=== PATIENT | male | born 1995 | race Caucasian/White ===

== ENCOUNTER 2023-10-09 14:57 | Emergency (ER) | payer OTHER ==
[~2023-10-09] VITALS: Ht 193 cm; Wt 122.5 kg
[2023-10-09 15:33] VITALS: BP 146/80; PULSE 95; RESP 18; TEMP 98.4; O2SAT 99
[2023-10-09] MEDS ORDERED: NACL 0.9% 1,000 ML IV ONE (17:20)
[2023-10-09 17:45] LABS: BASOPHILS % (AUTO) 0.2 % (0.0-2.0); HEMATOCRIT 38.1 % (36-52); HEMOGLOBIN 12.8 g/dL (12.0-18.0); LYMPHOCYTES # (AUTO) 1.2 K/uL (2.0-11.5); LYMPHOCYTES % (AUTO) 6.6 % (20.5-51.1); MEAN CORPUSCULAR HEMOGLOBIN 28 pg (27-31); MEAN CORPUSCULAR HGB CONC 34 g/dL (33-37); MEAN CORPUSCULAR VOLUME 81.9 fL (80-94); MONOCYTES # (AUTO) 1.6 K/uL (0.8-1.0); MONOCYTES % (AUTO) 8.8 % (1.7-9.3); NEUTROPHILS # (AUTO) 15.3 K/uL (1.8-7.7); NEUTROPHILS % (AUTO) 84.4 % (42.2-75.2); PLATELET COUNT (AUTO) 325 K/uL (140-450); RED BLOOD CELL COUNT(AUTO) 4.65 MIL/uL (4.20-6.10); RED CELL DISTRIBUTION WIDTH 14.3 % (11.6-13.7); WHITE BLOOD COUNT (AUTO) 18.1 K/uL (4.8-10.8)
[2023-10-09 18:13] LABS: ALBUMIN 3.8 g/dL (3.4-5.0); ANION GAP 10.2 (8-16); CALCIUM 8.5 mg/dL (8.5-10.1); CARBON DIOXIDE 27.8 mmol/L (21-32); TOTAL BILIRUBIN 2.1 mg/dL (0.0-1.0); TOTAL PROTEIN, SERUM 8.4 g/dL (6.4-8.2)
[2023-10-09 18:17] LABS: LACTIC ACID 1.2 mmol/L (0.4-2.0)
[2023-10-09] MEDS ORDERED: ceFAZolin 1,000 MG VIAL ONE (18:21)
[2023-10-09] MEDS ORDERED: POTASSIUM CHLORIDE 10 MEQ TABER PO ONE (19:15)
[2023-10-09] MEDS ORDERED: SULF-59 PO (20:16)
[2023-10-09] MEDS ORDERED: CEPH-588 PO (20:16)
[2023-10-09] MEDS ORDERED: ACET-10509 PO (20:16)
[2023-10-09 20:40] VITALS: BP 133/63; PULSE 94; RESP 20; TEMP 98.5; O2SAT 100
== END 2023-10-09 20:27 | disposition home or self-care (01) ==
LOC: MED 14:57
DX: A41.9 Sepsis, unspecified organism (principal); L03.115 Cellulitis of right lower limb; Z79.899 Other long term (current) drug therapy
CPT/HCPCS: 36415; 73701; 80053; 83605; 85025; 87040; 96365; 99285; J0690; J7030; Q9967